=== PATIENT | male | born 1965 | race Caucasian/White ===

== ENCOUNTER 2017-01-15 15:02 | Emergency (ER) | payer MEDICARE ==
[~2017-01-15 15:02] MED LIST: AMLO10TA2 PO; CITA40TA5 PO; CYCL10TA2 PO; HYDR-2762 PO; LISI1TAB3 PO; LORA10TA55 PO; MELO15TA23 PO; TRAM50TA PO
[2017-01-15 15:13] VITALS: BP 131/85
[2017-01-15] MEDS ORDERED: LIDOCAINE 1% / SOD BICARB 8.4% 20 ML VIAL. IJ ONE (15:15)
[2017-01-15] MEDS ORDERED: DIPHTH,PERTUSS(ACELL),TET TOX 0.5 ML DISP.SYRIN. VAX IM ONE (15:15)
--- NOTE | 2017-01-15 15:23 | PHYS DOC ---
Adult General Chief Complaint Chief Complaint: LACERATION/AVULSION HPI HPI Patient is a 51 year old male who presents with right index finger laceration. Patient states he got cut by a piece of metal. Review of Systems Review of Systems Constitutional: Denies fever or chills [] Eyes: Denies change in visual acuity, redness, or eye pain [] Musculoskeletal: Denies back pain or joint pain [] Integument: right index finger laceration Neurologic: Denies headache, focal weakness or sensory changes [] Endocrine: Denies polyuria or polydipsia [] Current Medications Current Medications Current Medications Medications (Trade) Dose Ordered Sig/Romina Start Time Stop Time Status Last Admin Dose Admin Diphtheria/ Tetanus/Acell Pertussis (Boostrix) 0.5 ml ONCE ONCE 01/15/17 15:15 01/15/17 15:18 DC 01/15/17 15:26 0.5 ML Lidocaine/Sodium Bicarbonate (Buffered Lidocaine 1%) 20 ml 1X ONCE 01/15/17 15:15 01/15/17 15:18 DC 01/15/17 15:27 20 ML Allergies Allergies Allergies Coded Allergies Type Severity Reaction Last Updated Verified nebivolol HCl Allergy Severe 09/24/13 Yes Physical Exam Physical Exam Constitutional: Well developed, well nourished, no acute distress, non-toxic appearance. [] Skin: Right index finger has a superficial 1 cm laceration along the PIP joint dorsal aspect. There is no obvious tendon involvement. Full range of motion to the right index finger MIP PIP and DIP joints including flexion and extension. Adequate radius sensation to the right index finger. Cap refill less than 2 seconds the right index finger. +2 right radial pulse. Back: No tenderness, no CVA tenderness. [] Extremities: No tenderness, no cyanosis, no clubbing, ROM intact, no edema. [] Neurologic: Alert and oriented X 3, normal motor function, normal sensory function, no focal deficits noted. [] Psychologic: Affect normal, judgement normal, mood normal. [] Current Patient Data Vital Signs Vital Signs Date Time Temp Pulse Resp B/P (MAP) Pulse Ox O2 Delivery O2 Flow Rate FiO2 01/15/17 15:13 98.4 86 22 95 Room Air 98.4 EKG EKG [] Radiology/Procedures Radiology/Procedures Indication: Right index finger laceration Procedure: The patient was placed in the appropriate position and anesthesia around the laceration was 1% buffered lidocaine. The laceration was explored for foreign objects, none was found, laceration was closed with 3 interrupted sutures using 5. 0 Ethilon. The wound was covered with nonstick dressing. Total repaired wound length: [Approximately 1 cm long Other Items: none The patient tolerated the procedure well Complications: none Course & Med Decision Making Course & Med Decision Making Pertinent Labs and Imaging studies reviewed. (See chart for details) Patient has right index finger laceration which was closed by me as noted in procedures by me. He was given tetanus in the ED. Wound care instructions as well as return precautions provided. Dragon Disclaimer Dragon Disclaimer This electronic medical record was generated, in whole or in part, using a voice recognition dictation system. Departure Departure Impression: Primary Impression: Laceration of right index finger Disposition: 01 HOME, SELF-CARE Condition: STABLE Referrals: MARILYN ALCALA (PCP) Follow-up with your doctor in 7-10 days for stitches removal Patient Instructions: Fingertip Laceration Additional Instructions: You were seen for right index finger laceration that was closed with stitches. Keep the area clean and dry. Apply Neosporin to the area twice a day. Follow-up with your doctor in the next 7-10 days for stitches removal or the ED. LAUREL DEL REAL APRN Jan 15, 2017 15:23
== END 2017-01-15 16:02 | disposition home or self-care (01) ==
LOC: ER 15:02
DX: S61.210A Laceration without foreign body of right index finger without damage to nail, initial encounter (principal); Z88.8 Allergy status to other drugs, medicaments and biological substances; Y28.8XXA Contact with other sharp object, undetermined intent, initial encounter; Y93.89 Activity, other specified; Y99.8 Other external cause status; Y92.89 Other specified places as the place of occurrence of the external cause
CPT/HCPCS: 12001; 90471; 90715; 99283-25; 99284-25

== ENCOUNTER → 2017-09-12 | Outpatient (CLI) | payer MEDICARE | END | disposition home or self-care (01) | LOC: KCIC 10:17 | DX: S49.82XD Other specified injuries of left shoulder and upper arm, subsequent encounter (principal); X58.XXXD Exposure to other specified factors, subsequent encounter | CPT/HCPCS: 73030 ==

== ENCOUNTER → 2017-09-14 | Outpatient (CLI) | payer MEDICARE | END | disposition home or self-care (01) | LOC: KCIC CT 09:45 | DX: S43.022A Posterior subluxation of left humerus, initial encounter (principal); X58.XXXA Exposure to other specified factors, initial encounter; Y93.89 Activity, other specified; Y92.89 Other specified places as the place of occurrence of the external cause; Y99.8 Other external cause status | CPT/HCPCS: 73200 ==

== ENCOUNTER → 2017-09-21 | Outpatient (CLI) | payer MEDICARE | END | disposition home or self-care (01) | LOC: KCIC MRI 10:52 | DX: S49.92XD Unspecified injury of left shoulder and upper arm, subsequent encounter (principal); X58.XXXD Exposure to other specified factors, subsequent encounter | CPT/HCPCS: 73221 ==

== ENCOUNTER → 2017-10-20 | Day surgery (SDC) | payer MEDICARE ==
[~2017-10-20] MED LIST changes: -AMLO10TA2 PO; -CITA40TA5 PO; -CYCL10TA2 PO; +DESFLURANE > 120 MINUTES IH; +DEXAMETHASONE SOD PHOS 20 MG/5 ML VIAL.; +FAMOTIDINE 20 MG/2 ML VIAL; +GLYCOPYRROLATE 1 MG/5 ML VIAL.; -HYDR-2762 PO; +HYDROmorphone 2 MG/ML VIAL IV; +LIDOCAINE 1% PF 2 ML VIAL. ID; -LISI1TAB3 PO; -LORA10TA55 PO; -MELO15TA23 PO; +MIDAZOLAM HCL/PF 2 MG/2 ML VIAL.; +MORPHINE SULFATE 4 MG/ML DISP.SYRIN. IV; +ONDANSETRON PF 4 MG/2 ML VIAL.; +ONDANSETRON PF 4 MG/2 ML VIAL. IV; +PROCHLORPERAZINE 10 MG/2 ML VIAL. IV; +PROPOFOL 20 ML IV; +ROCURONIUM 50 MG/5 ML VIAL.; +ROPIVacaine 0.5% PF 30 ML VIAL.; +SUCCINYLCHOLINE 200 MG/10 ML VIAL.; -TRAM50TA PO; +fentaNYL PF VIAL 100 MCG/2 ML VIAL; +fentaNYL PF VIAL 100 MCG/2 ML VIAL IV
[2017-10-20] MEDS: IV RINGERS,LACTATED 1000ML 1,000 ML IV (11:13)
[2017-10-20] MEDS: EPINEPHrine VIAL 30 MG/30 ML VIAL (13:07)
[2017-10-20] MEDS: oxyCODONE/APAP 7.5/325 1 TAB TABLET PO (15:52)
== END ==
LOC: SURG 10:45
DX: M19.012 Primary osteoarthritis, left shoulder (principal); M94.8X1 Other specified disorders of cartilage, shoulder; Z79.899 Other long term (current) drug therapy
CPT/HCPCS: 29823; C1713; J0171; J0330; J1100; J2250; J2405; J2704; J2795; J3010; J3490; S0028

== ENCOUNTER → 2020-06-16 | Outpatient (CLI) | payer MEDICARE ==
[2017-10-20 15:57] VITALS: BP 127/69
[~2020-06-16] MED LIST changes: +AMLO-187 PO; +CITA40TA5 PO; +CYCL10TA2 PO; -DESFLURANE > 120 MINUTES IH; -DEXAMETHASONE SOD PHOS 20 MG/5 ML VIAL.; -FAMOTIDINE 20 MG/2 ML VIAL; +GABA300C18 PO; -GLYCOPYRROLATE 1 MG/5 ML VIAL.; +HYDR-2765 PO; -HYDROmorphone 2 MG/ML VIAL IV; -LIDOCAINE 1% PF 2 ML VIAL. ID; +LISI1TAB23 PO; +LORA-169 PO; +MELO15TA23 PO; -MIDAZOLAM HCL/PF 2 MG/2 ML VIAL.; -MORPHINE SULFATE 4 MG/ML DISP.SYRIN. IV; -ONDANSETRON PF 4 MG/2 ML VIAL.; -ONDANSETRON PF 4 MG/2 ML VIAL. IV; +OXYC1TAB19 PO; -PROCHLORPERAZINE 10 MG/2 ML VIAL. IV; -PROPOFOL 20 ML IV; -ROCURONIUM 50 MG/5 ML VIAL.; -ROPIVacaine 0.5% PF 30 ML VIAL.; -SUCCINYLCHOLINE 200 MG/10 ML VIAL.; +TRAM50TA PO; -fentaNYL PF VIAL 100 MCG/2 ML VIAL; -fentaNYL PF VIAL 100 MCG/2 ML VIAL IV
--- NOTE | 2020-06-16 16:55 | KCIC ---
EXAM: Right knee, 3 views. HISTORY: Pain. COMPARISON: None. FINDINGS: 3 views of the right knee are obtained. There is no fracture, dislocation or subluxation. There is trace joint fluid without a significant effusion. There is mild prepatellar soft tissue prominence. IMPRESSION: 1. No acute osseous finding. 2. Mild prepatellar soft tissue prominence. This may be due to skin thickening, a contusion or prepatellar bursitis. Electronically signed by: Mitzy Reilly MD (06/16/2020 4:52 PM) [facility]
--- NOTE | 2020-06-16 17:10 | KCIC ---
Right shoulder 3 views INDICATION: Right shoulder pain COMPARISON: None. FINDINGS: AP internal rotation, external rotation and scapular Y views of the right shoulder were obtained. They show bulky osteophytes on the humeral head and joint space narrowing in the glenohumeral joint consistent with moderately advanced glenohumeral degenerative change. There is mild caudal subluxation of the humeral head relative to the glenoid fossa that could reflect a joint effusion. The acromioclavicular joint shows minimal osteophytic spurring. Alignment is anatomic. IMPRESSION: Degenerative changes in the glenohumeral and to a lesser extent, the acromioclavicular joints of the right shoulder. There may be a joint effusion present as well. This would be better evaluated on MRI or ultrasound. No dislocation or fracture noted. Electronically signed by: Radha Haines MD (06/16/2020 5:07 PM) [id number]
== END ==
LOC: KCIC 15:13
PROVIDERS: ATTEND Physician Assistant Medical
DX: M19.011 Primary osteoarthritis, right shoulder (principal); M25.561 Pain in right knee
CPT/HCPCS: 73030; 73562

== ENCOUNTER → 2020-10-22 | Outpatient (CLI) | payer MEDICARE ==
[2017-10-20 15:57] VITALS: BP 127/69
--- NOTE | 2020-10-22 20:25 | KCIC ---
Study: XR LUMBAR SPINE 4+V Indication: Degenerative disc disease. Lumbar fusion. Low back pain and right leg pain. Comparison: None. Findings: Dorsal decompression and posterior instrumented fusion spanning L4-S1. Pedicle screws at L4 and S1. T he hardware is intact. No radiographic evidence for loosening. Probable fusion across the L4/L5 and L 5-S1 disc spaces. Straightening of lumbar lordosis. No significant listhesis. Maintained disc space height but there is confluent endplate sclerosis at the lower half of L2 and mildly at the upper aspect of L3. Endplate osteophytic ridging at L2-L3 and L3-L4. No concerning vertebral body height loss. No advanced facet a rthrosis above the surgical levels. Cholecystectomy clips. Impression: 1. Intact and well fixated dorsal fusion construct spanning L4-S1. 2. Disc space height is maintained however there is endplate sclerosis surrounding the L2-L3 disc spa ce indicating degenerative disc disease. Endplate osteophytic ridging at L3-L4 but without significan t endplate sclerosis No advanced facet arthrosis. Electronically signed by: ALMA OLIVERA MD (10/22/2020 8:22 PM) [facility]
== END ==
LOC: KCIC 11:35
PROVIDERS: ATTEND Family Medicine
DX: M51.36 Other intervertebral disc degeneration, lumbar region (principal); G95.89 Other specified diseases of spinal cord; M43.27 Fusion of spine, lumbosacral region; Z98.1 Arthrodesis status
CPT/HCPCS: 72110

== ENCOUNTER → 2020-11-27 | Outpatient (CLI) | payer MEDICARE ==
[2017-10-20 15:57] VITALS: BP 127/69
--- NOTE | 2020-11-27 10:02 | KCIC ---
MRI of the lumbar spine without contrast 11/27/2020 CLINICAL HISTORY: Chronic low back pain which radiates down the right leg. History of lumbar fusion. TECHNIQUE: Unenhanced T1-weighted and T2-weighted sagittal and axial and inversion recovery sagittal images of the lumbar spine were obtained. FINDINGS: Very mild S-shaped curvature of the thoracolumbar spine is seen. The patient is post mary ctomy and posterolateral fusion using pedicle screws and stabilizing rods which extend from L4 to S1. Degenerative signal changes and loss of height are seen involving all of the L4-5 and L5-S1 discs. D egenerative signal changes are seen involving the L2-3 and L3-4 discs. Degenerative signal changes ar e seen within the marrow surrounding all of the disks of the lumbar spine. A 1.4 cm hemangioma is see n involving the L3 vertebral body. The conus medullaris is normal morphology, position, and signal ch aracteristics. At the L1-2 disc space there is a minimal generalized disc bulge. Degenerative changes are seen invol ving the facet joints bilaterally. There is mild ligamentum flavum hypertrophy bilaterally. These fin dings do not result in significant central spinal canal or neural foraminal stenosis. At the L2-3 disc space there is a mild generalized disc bulge. Superimposed on this disc bulge is a c entral/right paracentral disc osteophyte complex. This measures 3 mm in AP diameter. Degenerative sabi nges are seen involving the facet joints bilaterally. There are small facet joint effusions bilateral ly. There is mild ligamentum flavum hypertrophy bilaterally. There is prominence of the posterior epi dural fat. These findings when combined result in mild right greater than left central spinal canal s tenosis. No neural foraminal stenosis is seen. At the L3-4 disc space there is a mild to moderate generalized disc bulge. Degenerative changes are s een involving the facet joints bilaterally. There is mild ligament flavum hypertrophy bilaterally. Th ere is prominence of posterior epidural fat. These findings when combined result in moderate central spinal canal stenosis. No neural foraminal stenosis is seen. At the L4-5 level degenerative changes are seen involving the facet joints bilaterally. These finding s do not result in significant central spinal canal or neural foraminal stenosis. At the L5-S1 level degenerative changes are seen involving the facet joints bilaterally. These findin gs do not result in significant central spinal canal or neural foraminal stenosis. IMPRESSION: 1. Post laminectomy and fusion extending from L4 to S1. 2. The changes of degenerative disc disease are seen involving lumbar spine. These findings result in mild right greater than left central spinal canal stenosis at L2-3 and moderate central spinal canal stenosis at L3-4. No neural foraminal stenosis is seen. Electronically signed by: Kb Lang MD (11/27/2020 9:59 AM) [id number]
== END ==
LOC: KCIC MRI 08:09
PROVIDERS: ATTEND Physician Assistant Medical
DX: M51.16 Intervertebral disc disorders with radiculopathy, lumbar region (principal); M48.061 Spinal stenosis, lumbar region without neurogenic claudication; M47.26 Other spondylosis with radiculopathy, lumbar region; Z98.1 Arthrodesis status
CPT/HCPCS: 72148

== ENCOUNTER → 2020-12-23 | Outpatient (CLI) | payer MEDICARE ==
[2017-10-20 15:57] VITALS: BP 127/69
[~2020-12-23] MED LIST changes: +BACL10TA PO; +DICL20GE TP; +DULA0.75 SQ; +FLUT9.9S NS; +HYDR-2759 PO; +IOHEXOL 180 MG/ML 10 ML VIAL. ONE; +OMEP40CA7 PO; +methylPREDNISolone ACETATE 40 MG/ML VIAL. ONE; +methylPREDNISolone ACETATE 80 MG/ML VIAL. ONE
--- NOTE | 2020-12-23 13:16 | PDOC1 ---
INITIAL PAIN CONSULT DATE OF SERVICE: DOS: DATE: 12/23/20 TIME: 13:09 CHIEF COMPLAINT: Chief Complaint: Low back and right lower extremity pain HISTORY OF PRESENT ILLNESS: 55-year-old male presents history of pain in the low back and right lower extremity for many years worse over the past year or so without any specific injury accident he is aware of, patient reports that he was doing fairly well until the last year or 2 the pain began to return and getting much more noticeable over the past year or so patient reports in the low back rating right right lower extremity posterior gluteus lateral thigh anterior thigh medial thigh and groin on the right side medial lower leg patient reports is worse with walking and standing changing positions better with sitting or laying down but wakes him from sleep about 2-3 times a night patient reports is not effective bowel bladder control does affect his ability to walk significantly is not use any assistive devices. Patient reports has had physical therapy counseling chiropractic treatment as well as doing exercise currently taking hydrocodone as well as [id number] anti-inflammatories which do help and only mildly p atient rates his disability rating 0-10 10 being the worst is a 8 with family home responsibilities recreation and social activity 10 with occupational activities 5 with self-care and 7 with life support activities. Patient had MRI scan lumbar spine showing postlaminectomy and fusion extending from L4-S1 with degenerative disc disease involving the lumbar spine with mild right greater than left central spinal canal stenosis at L2-3 and moderate central spinal canal stenosis at L3-4. Patient describes pain is sharp stabbing throbbing and shooting in the leg aching and dull with some tingling in the back as well as in the leg. Patient reports no overt motor loss but significant fatigability the right leg with walking and standing. PAST MEDICAL HISTORY: PMH: Hypertension, type 2 diabetes, hearing loss, arthritis, gastroesophageal reflux PREVIOUS SURGERIES: Past Surgical Hx: Right knee scope, left shoulder scope, left arm fracture, lumbar fusion 2004, cholecystectomy CURRENT MEDICATIONS: Current Meds: Active Scripts Medications Dose Route/Sig Max Daily Dose Days Date Category Flonase Allergy Relief (Fluticasone Propionate) 9.9 Ml [place].susp 2 Sprays NS DAILY 12/23/20 Reported Voltaren Arthritis Pain (Diclofenac Sodium) 20 Gm Gel..gram. 20 Gm TP PRN PRN 12/23/20 Reported Baclofen 10 Mg Tablet 1 Tab PO TID 12/23/20 Reported Omeprazole 40 Mg Capsule.dr 1 Cap PO DAILY 12/23/20 Reported Hydrocodone-Acetamin 5-325 mg (Hydrocodone/Acetaminophen) 1 Each Tablet 1 Each PO PRN PRN 12/23/20 Reported Trulicity (Dulaglutide) 0.75 Mg/0.5 Ml Pen.injctr Unknown Dose SQ WEEKLY 12/23/20 Reported Gabapentin (Gabapentin) 300 Mg Capsule 600 Mg PO QEVNG 10/17/17 Reported Lisinopril-Hctz 10-12.5 Mg Tab (Lisinopril/Hydrochlorothiazide) 1 Each Tablet 1 Each PO DAILY 09/23/13 Reported Loratadine 10 Mg Tab.rapdis 10 Mg PO DAILY 09/23/13 Reported Tramadol Hcl 50 Mg Tablet 50 Mg PO DAILY PRN 09/23/13 Reported Citalopram Hbr (Citalopram Hydrobromide) 40 Mg Tablet 40 Mg PO DAILY 09/23/13 Reported ALLERGIES; Allergies: Coded Allergies: nebivolol HCl (Verified Allergy, Severe, 10/20/17) muscle cramps adhesive tape (Verified Allergy, Mild, ITCH (PAPER?), 10/20/17) NSAIDS (Non-Steroidal Anti-Inflamma (Verified Adverse Reaction, Intermediate, DUE TO STOMACH ULCER, 10/20/17) CAN'T TAKE NSAIDS DUE TO STOMACH ULCER FAMILY HISTORY: Family Hx: No major medical problems or conditions that he is aware of. SOCIAL HISTORY: Social Hx: Patient is nondrug alcohol does not smoke or use any illegal illicit recreational drugs is single lives locally in [facility] reports he is on disability since his lumbar surgery. REVIEW OF SYSTEMS: ROS: Positive for those items mentioned in history of present illness, all systems are reviewed, otherwise negative ,and are complete full and well-documented on patient's chart. PHYSICAL EXAM: VS: Blood pressure is 130/88 pulse 76 respirations 16 temperature 98.2 F height 6 foot weight 293 pounds PE: PHYSICAL EXAMINATION: GENERAL: The patient is awake, alert, oriented, appropriate, very pleasant demeanor HEENT: Shows normocephalic, atraumatic. Extraocular movements are intact and symmetrical. Oral cavity: Mucous membranes moist and pink. Dentition is intact. NECK: Shows anterior throat supple without palpable lymphadenopathy noted. Swallow reflex symmetrical. CHEST: Shows normal on inspection. Breath sounds are clear bilaterally, no rales rhonchi wheezes auscultated. HEART: Shows S1, S2 clear. No murmurs auscultated. ABDOMEN: Soft, nontender, nondistended, obese. No palpable organomegaly is noted. No rebound or guarding demonstrated. BACK: Shows spine grossly in the midline. Normal-appearing cervical lordotic c urvature. There is slightly increased thoracic kyphosis, some minor flattening of the lumbar lordotic curvature. Lumbar paraspinous muscles show symmetrical on inspection, on palpation shows some moderate tenderness diffusely throughout the upper, middle and lower distribution of the paraspinous muscles bilaterally and also into the lower thoracic paraspinous musculature, firm and tender, but without specific trigger points, without radiation of pain. The patient has good rotational motion of the lumbar spine, both laterally as well as extension and flexion without significant difficulty. No tenderness over the spinous processes, sacrum or sacroiliac regions. EXTREMITIES: Lower extremities show deep tendon reflexes 2+ in the patellar and tendo calcaneus tendons. Motor exam is 5 on a scale of 5 with right dorsiflexion, extension, quadriceps and hamstring flexion and 5/5 on the left. Peripheral pulses are 1 posterior tibial. No peripheral edema is noted bilaterally. Lower extremities are warm and dry to touch, equal in color and appearance. Straight leg raise noted to be positive on the right about 45 degrees, left side is negative. Gaenslen's and Catalino's maneuvers are negative bilaterally as well. The patient is able to stand, stand on his toes without significant difficulty or loss of balance, walks with a normal-appearing gait does not appear to favor the right or left lower extremity significantly not use any assistive devices to ambulate. SKIN: Shows warm and dry, good turgor. No edema. No sores, rashes or bruising throughout. IMPRESSION: Impression: 55-year-old male with long history low back right lower extremity pain and radicular fashion MRI scan lumbar spine as noted Type 2 diabetes Hypertension Arthritis Obesity Plan: Options were discussed with patient including conservative medical management physical therapies interventional techniques. Patient would like to pursue interventional techniques we discussed a lumbar epidural steroid injections description as well as anatomical models to describe the procedure. Risks were discussed including but not limited to: Bleeding, infection, possibility of epidural hematoma and subsequent neurological compromise, dural puncture, headaches, spinal cord and/or nerve damage, side effects of steroid medication, and poor results regarding pain control. Patient understands and wished to proceed. Patient will return to the clinic in approximate 2 weeks for follow-up, was counseled as to return appointment activity level and side effects to be aware of. Procedure is lumbar epidural steroid injection under local anesthetic using sterile prep and drape at the L3-4 level using C-arm fluoroscopic guidance in both AP and lateral views medications injected is 120 mg Depo-Medrol +10mL preservative-free normal saline and 2 mL contrast- condition at discharge is stable patient tolerated procedure well had no complications. REMA GAUTHIER MD Dec 23, 2020 13:16
== END | disposition home or self-care (01) ==
LOC: PNCL 08:17
PROVIDERS: ATTEND Anesthesiology
DX: M54.5 Low back pain (principal); M51.36 Other intervertebral disc degeneration, lumbar region; M48.061 Spinal stenosis, lumbar region without neurogenic claudication; F32.9 Major depressive disorder, single episode, unspecified; I10 Essential (primary) hypertension; Z88.8 Allergy status to other drugs, medicaments and biological substances; Z90.49 Acquired absence of other specified parts of digestive tract; Z79.899 Other long term (current) drug therapy
CPT/HCPCS: 62323; J1030; J1040; Q9965

== ENCOUNTER → 2021-04-05 | Outpatient (CLI) | payer MEDICARE ==
[2017-10-20 15:57] VITALS: BP 127/69
[~2021-04-05] MED LIST changes: -methylPREDNISolone ACETATE 40 MG/ML VIAL. ONE
--- NOTE | 2021-04-05 08:27 | PDOC ---
Progress Note - Pain Clinic Date of Service: DOS: DATE: 04/05/21 TIME: 08:24 Diagnosis: Dx: Lumbar radiculopathy with lumbar degenerative disease lumbar spinal stenosis and lumbar postlaminectomy syndrome History or Present Illness: HPI: 55-year-old male returns for follow-up status post lumbar epidural steroid injection x1 last seen December 23, 2020. Patient reports he did very well you had percent improvement until the last 3 to 4 weeks the pain began to return in the low back and the right side now radiating to the left side as well occasionally but mostly on the right side patient reports is into the right leg right posterior gluteus lateral thigh anterior thigh medial thigh in the groin on the right side that sharp and dull aching tight shooting can be stabbing and severe it is a 9 on scale 10 is worst 8 on average for its least is a 4 today. Patient reports besides the left low back having some pain as well the pain is come back as it was previously. Patient reports no motor deficits but some mild fatigue with standing and walking with the right leg patient reports prior to this he was doing much better distance walking doing household activities work activities travel with greater ease and comfort, and sleeping better at night. Patient reports no bowel or bladder incontinence. Physical Exam: VS: Blood pressure is 150/95 pulse 76 respirations 18 temperature 98.4 F height 6 foot weight is 285 pounds. PE: PHYSICAL EXAMINATION: GENERAL: The patient is awake, alert, oriented, appropriate, very pleasant in demeanor HEENT: Shows normocephalic, atraumatic. Extraocular movements are intact and sy mmetrical. Oral cavity: Mucous membranes moist and pink. NECK: Shows anterior throat supple without palpable lymphadenopathy noted. Swallow reflex symmetrical. CHEST: Shows normal on inspection. Breath sounds are clear bilaterally. HEART: Shows S1, S2 clear. No murmurs auscultated. ABDOMEN: Soft, nontender, nondistended. No palpable organomegaly is noted. No rebound or guarding demonstrated. BACK: Shows spine grossly in the midline. Normal-appearing cervical lordotic curvature. There is slightly increased thoracic kyphosis, some flattening of the lumbar lordotic curvature, with midline surgical scar noted. Lumbar paraspinous muscles show symmetrical on inspection, on palpation shows some moderate tenderness diffusely throughout the upper, middle and lower distribution of the paraspinous muscles without specific trigger points, without radiation of pain. The patient has good rotational motion of the lumbar spine, both laterally as well as extension and flexion without significant difficulty. EXTREMITIES: Lower extremities show deep tendon reflexes 2+ in the patellar and tendo calcaneus tendons. Motor exam is 5 on a scale of 5 with right dorsiflexion, extension, quadriceps and hamstring flexion and 5/5 on the left. Peripheral pulses are 1 posterior tibial. No peripheral edema is noted bilaterally. Lower extremities are warm and dry to touch, equal in color and appearance. SKIN: Shows warm and dry, good turgor. No edema. No sores, rashes or bruising throughout. Procedure: Procedure: Options discussed with the patient. Patient's old chart was reviewed as his current medication regimen updated current review of systems updated today as well. We will proceed with a lumbar epidural steroid injection today with fluo roscopic guidance. Risks were discussed including but not limited to: Bleeding, infection, possibility of epidural hematoma and subsequent neurological compromise, dural puncture, headaches, spinal cord and/or nerve damage, side effects of steroid medication, and poor results regarding pain control. Patient understands and wished to proceed. Patient will return to clinic in approximate 4 weeks for follow-up, was counseled as return appointment, activity level, and side effects beware of. Medication Injected: Med Injected: Procedure is lumbar epidural steroid injection under local anesthetic using sterile prep and drape at the L3-4 level using C-arm fluoroscopic guidance in both AP and lateral views medications injected is 120 mg Depo-Medrol +10mL preservative-free normal saline and 2 mL contrast- condition at discharge is stable patient tolerated procedure well had no complications. Condition at Discharge: Condition at Discharge: Condition at discharge is stable, patient tolerated the procedure well and had no complications. REMA GAUTHIER MD Apr 05, 2021 08:27
--- NOTE | 2021-04-05 08:28 | PDOC4 ---
Procedure Note: ICD 10 Code: ICD 10 Code: M54 0.16 M 48.06 M51.36 M 96.1 Procedure Note: Patient was consented for lumbar epidural steroid injection with fluoroscopic guidance risks were discussed including but not limited to: Bleeding, infection, possibility of epidural hematoma and subsequent neurological compromise, dural puncture, headaches, spinal cord and/or nerve damage, side effects of steroid medication, and poor results regarding pain control. Patient understands and wished to proceed. Procedure is lumbar epidural steroid injection under local anesthetic using sterile prep and drape at the L3-4 level using C-arm fluoroscopic guidance in both AP and lateral views medications injected is 120 mg Depo-Medrol +10mL preservative-free normal saline and 2 mL contrast- condition at discharge is stable patient tolerated procedure well had no complications. REMA GAUTHIER MD Apr 05, 2021 08:28
== END | disposition home or self-care (01) ==
LOC: PNCL 07:46
PROVIDERS: ATTEND Anesthesiology
DX: M51.16 Intervertebral disc disorders with radiculopathy, lumbar region (principal); M48.061 Spinal stenosis, lumbar region without neurogenic claudication; M96.1 Postlaminectomy syndrome, not elsewhere classified; I10 Essential (primary) hypertension; F32.9 Major depressive disorder, single episode, unspecified; Z90.49 Acquired absence of other specified parts of digestive tract; Z98.890 Other specified postprocedural states; Z79.899 Other long term (current) drug therapy; Z88.8 Allergy status to other drugs, medicaments and biological substances
CPT/HCPCS: 62323; J1040; Q9965

== ENCOUNTER → 2021-08-27 | Outpatient (CLI) | payer MEDICARE ==
[2017-10-20 15:57] VITALS: BP 127/69
[~2021-08-27] MED LIST changes: -CITA40TA5 PO; +CITA40TA6 PO; +CYCL10TA19 PO; -CYCL10TA2 PO; -IOHEXOL 180 MG/ML 10 ML VIAL. ONE; -LISI1TAB23 PO; +LISI1TAB35 PO; -methylPREDNISolone ACETATE 80 MG/ML VIAL. ONE
--- NOTE | 2021-08-27 11:41 | KCIC ---
EXAM: Lumbar spine, 5 views. HISTORY: Pain. COMPARISON: 10/22/2020 FINDINGS: 5 views of the lumbar spine are obtained. There are 6 nonrib-bearing lumbar segments or 5 n one rising segments with hypoplastic T12 ribs. For the purposes of this dictation, the last lumbar se gment is considered L5. Based on the stomach system, there is instrumented posterior spinal fusion at L4-S1. There is laminotomy decompression at the fused levels. There is multilevel endplate remodelin g, primarily at L2-L3. There is mild lumbar levocurvature.. IMPRESSION: 1. Instrumented fusion and laminectomy decompression at L4-S1. 2. Multilevel degenerative change, primarily at L2-L3. Electronically signed by: Mitzy Reilly MD (08/27/2021 11:38 AM) [id number]
== END ==
LOC: KCIC 10:09
PROVIDERS: ATTEND Physician Assistant Medical
DX: M47.816 Spondylosis without myelopathy or radiculopathy, lumbar region (principal); M54.41 Lumbago with sciatica, right side; Z98.1 Arthrodesis status
CPT/HCPCS: 72110

== ENCOUNTER → 2021-09-13 | Outpatient (CLI) | payer MEDICARE ==
[2017-10-20 15:57] VITALS: BP 127/69
--- NOTE | 2021-09-13 12:42 | KCIC ---
MRI lumbar spine without contrast HISTORY: Status post lumbar fusion. Chronic pain syndrome. Acute left-sided low back pain with sciati ca. Osteoarthritis of spine with radiculopathy, lumbar region. COMPARISON: MRI lumbar spine November 27, 2020 FINDINGS: Lumbar vertebral body height and alignment intact. No bone marrow edema. Conus terminates a t the T12 vertebral level. Cauda equina is normal. Postoperative change L4 and L5 laminectomies, L4-L 5 discectomy with interbody osseous fusion, and placement of pedicle screws and rods across L4 and S1 with susceptibility artifact from the hardware as was present on the prior study. L5-S1 marked disc height loss and partial interbody osseous fusion perhaps from discectomy as well versus advanced disc degeneration with interbody autofusion. Lower lumbar dorsal paraspinal muscle atrophy at the surgica l levels. Disc disease as described below. T11-T12: Disc desiccation, disc height loss, disc bulge with shallow left paracentral disc herniation only imaged on the sagittal sequences on this exam, similar to the prior study, spinal canal grossly patent. T12-L1: Normal. L1-L2: Normal. L2-L3: Disc desiccation, disc height loss, moderate circumferential disc osteophyte. Disc osteophyte kavitha the ventral dural sac. Mild bilateral neural foraminal stenoses. Mild spinal canal stenosis d ural sac diameter is 9 mm. Stable. L3-L4: Disc desiccation, posterior disc height loss, moderate circumferential disc osteophyte. Dorsal epidural lipomatosis kavitha the dorsal dural sac. Ligament flavum thickening. Facet hypertrophy and spurring. Mild right neural foraminal stenosis. Moderate left neural foraminal stenosis. There is mo derate spinal canal stenosis midline dural sac diameter is 8 mm between the disc osteophyte and the d orsal epidural fat, although the bony spinal canal remains relatively patent. Stable. L4-L5: Spinal canal decompressed. Neural foramina patent. L5-S1: Marked disc height loss and interbody osseous fusion perhaps due to prior discectomy. There is a mild posterior and lateral disc osteophyte. Mild facet spur. Mild neural foraminal stenoses. Spina l canal decompressed. Stable. IMPRESSION: 1. Postoperative changes of L4 and L5 laminectomies, discectomies and fusion. The spinal canal is dec ompressed at these operative levels. 2. Lumbar disc disease and facet arthritis with spinal canal and neural foraminal stenoses. The great est degree of stenotic disease is at L3-L4 with severe spinal canal stenosis due to disc osteophyte a nd dorsal epidural lipomatosis. See above. Electronically signed by: Sean Trejo MD (09/13/2021 12:40 PM) [facility]IS[facility]
== END ==
LOC: KCIC MRI 09:09
PROVIDERS: ATTEND Family Medicine
DX: G89.4 Chronic pain syndrome (principal); M47.26 Other spondylosis with radiculopathy, lumbar region; M51.36 Other intervertebral disc degeneration, lumbar region; M51.27 Other intervertebral disc displacement, lumbosacral region; M48.07 Spinal stenosis, lumbosacral region; M25.78 Osteophyte, vertebrae; M46.06 Spinal enthesopathy, lumbar region; E88.2 Lipomatosis, not elsewhere classified; M47.896 Other spondylosis, lumbar region; Z98.1 Arthrodesis status
CPT/HCPCS: 72148